=== PATIENT | male | born 1965 | race Two or more races ===

== ENCOUNTER 2020-04-23 06:01 | Emergency (ER) | payer SELFPAY ==
[~2020-04-23] VITALS: Ht 160 cm; Wt 77.0 kg
[2020-04-23 06:04] VITALS: BP 160/80
[2020-04-23 09:20] LABS: BASOPHILS % 0.8 % (0.0-2.0); EOSINOPHILS % 0.5 % (0.0-5.0); HEMATOCRIT. 33.1 % (42.0-52.0); HEMOGLOBIN. 11.4 g/dL (14.0-18.0); LYMPHOCYTES % 18.2 % (20.0-50.0); MEAN CORPUSCULAR HEMOGLOBIN 31.3 pg (28.0-32.0); MEAN CORPUSCULAR VOLUME 91.4 fL (80.0-94.0); MEAN PLATELET VOLUME 6.9 fl (7.4-10.4); MONOCYTES % 10.4 % (2.0-8.0); NEUTROPHILS % 70.1 % (40.0-76.0); PLATELET 455 x1000/uL (130-400); RED BLOOD CELL COUNT 3.63 mill/uL (4.7-6.1); RED CELL DISTRIBUTION WIDTH 12.9 % (11.6-14.6)
[2020-04-23 09:28] LABS: CHLORIDE 97 mEq/L (98-107)
[2020-04-23 09:34] LABS: ETHANOL BLOOD < 10 mg/dL
== END 2020-04-23 11:41 | disposition left against medical advice (07) ==
LOC: ER 06:01
DX: R41.82 Altered mental status, unspecified (principal); F10.229 Alcohol dependence with intoxication, unspecified; Y90.0 Blood alcohol level of less than 20 mg/100 ml
CPT/HCPCS: 36415; 80053; 80320; 85025; 99284; G0480